=== PATIENT | male | born 2000 | race Hispanic/Latino ===

== ENCOUNTER 2023-01-13 11:34 | Emergency (ER) | payer OTHER, SELFPAY ==
[2023-01-13 11:40] VITALS: BP 143/84; PULSE 95; RESP 18; TEMP 36.9; O2SAT 98; BMI 21.5
--- NOTE | 2023-01-13 12:20 | PC.NURSE ---
Pt stated that he wants to and has the main plan of intentional overdose and a secondary plan of stabbing himself and [place]. Pt reports that he has always had some thoughts of suicide his entire life, but it got worse when he gave up on a goal he had set for himself. However, pt was unwilling to elaborate on goal. Pt also reports that he has suffered from depression and anxiety throughout his life, but never been formally diagnosed. Pt affect is guarded and flat, but calm and cooperative. Pt states that he does not want inpatient treatment at this time, but that if he were to be discharged he would follow through with his plan.
[2023-01-13 12:41] LABS: UR Morphine/Opiate cutoff 300 Negative (Negative); Ur Creatinine Normal (Normal); Ur Specific Gravity Normal (Normal); Urine Amphetamines Negative (Negative); Urine Barbiturates Negative (Negative); Urine Benzodiazepines Negative (Negative); Urine Cocaine Negative (Negative); Urine MDMA Negative (Negative); Urine Methadone Negative (Negative); Urine Methamphetamines Negative (Negative); Urine Oxycodone Negative (Negative); Urine Phencyclidine Negative (Negative); Urine Tetrahydrocannabinol Negative (Negative); Urine Tricyclic Antidepressant Negative (Negative); Urine pH Normal (Normal)
--- NOTE | 2023-01-13 12:41 | PC.NURSE ---
JEANNETTE Griffith in to speak with patient
[2023-01-13 12:42] LABS: Add Manual Diff / Slide Review NO; Basophils Absolute Auto 0 /uL (0-100); Basophils Percent Auto 0.7 % (0-2); Eosinophils Absolute Auto 0 /uL (0-450); Eosinophils Percent Auto 0.5 % (2-4); Lymphocytes Absolute Auto 800 /uL (1100-4500); Lymphocytes Percent Auto 17.8 % (25-40); Mean Corpuscular HGB Conc 34.1 % (30-36); Mean Corpuscular Hemoglobin 29.9 PG (26-34); Mean Corpuscular Volume 87.6 fL (80-100); Monocytes Absolute Auto 300 /uL (0-900); Monocytes Percent Auto 6.8 % (3-14); Neutrophils Absolute Auto 3200 /uL (1500-7000); Neutrophils Percent Auto 74.2 % (50-75); Platelet Count 324 X10^3/uL (150-400); Red Blood Cell Count 5.02 X10^6/uL (4.5-5.9); Red Cell Distribution Width 13.4 % (11.6-14.8); White Blood Cell Count 4.4 X10^3/uL (4.5-11.0)
[2023-01-13 12:46] LABS: Bacteria Urine Occasional (0-1); RBC Urine 1-5/HPF (0-5/HPF); Squamous Epithelial Cell Urine 0-1 /HPF (0-5/HPF); WBC Urine 1-5/HPF (0-5/HPF)
--- NOTE | 2023-01-13 12:50 | ED_ITS ---
HPI - Psych General Chief Complaint: Psychiatric Symptoms Stated Complaint: Suicidal Time Seen by Provider: 01/13/23 12:05 Source: patient Mode of arrival: Ambulatory History of Present Illness HPI Narrative: [place] accompanied by senior officers. I did speak to patient by himself. He states he is felt very depressed for over a week. He is had these feelings in the past, years ago but never saw any providers for it. Denies any diagnosis of depression anxiety bipolar. He is not done anything to hurt himself yet. He had planned in the past couple days to take pills and stab himself and [place]. Patient is cooperative at this time. He states he is never had admission to psychiatric or behavioral Health [place] in the past. Denies any drugs or alcohol use Related Data Allergies Allergy/AdvReac Type Severity Reaction Status Date / Time No Known Drug Allergies Allergy Verified 01/13/23 11:48 Review of Systems Review of Systems Narrative: GENERAL: negative chills, fatigue, malaise, fever, sweats. HEENT: negative sinus pain, ear pain, sore throat RESPIRATORY: negative dyspnea, cough CARDIOVASCULAR: negative chest pain, palpitations GASTROINTESTINAL: negative nausea, vomiting, abdominal pain : negative dysuria, frequency, hematuria MUSCULOSKELETAL: negative muscle or bony pain SKIN: negative rash, skin lesions NEUROLOGIC: negative weakness, numbness PSYCH: Positive anxiety positive depression positive SI negative delusions/hallucinations ROS Unobtainable: All systems reviewed & are unremarkable except as noted in HPI and below Patient History Social History Smoking Status: Never smoker Smoking Status: Never smoker Substance Use Type: does not use Exam Narrative Exam Narrative: GENERAL: in no distress, not toxic not dyspneic HEAD: Normocephalic. EYES: Pupils equal round ENT: Mucous membranes moist. NECK: Trachea midline. CARDIOVASCULAR: Regular rate and rhythm RESPIRATORY: Clear to auscultation. Breath sounds equal bilaterally. No wheezes, rales, or rhonchi. EXTREMITIES: No gross deformities. BACK: No flank tenderness. NEURO: AOx4. SKIN: Warm and dry PSYCH: Not anxious, is cooperative, has flat affect. Not tearful. Very short with answers, no rapid speech or pressured speech. Does have plan for suicide ideations. No HI. Initial Vital Signs Initial Vital Signs: Vital Signs Temperature 98.4 F 01/13/23 11:40 Pulse Rate 95 H 01/13/23 11:40 Respiratory Rate 18 01/13/23 11:40 Blood Pressure 143/84 H 01/13/23 11:40 Pulse Oximetry 98 01/13/23 11:40 Oxygen Delivery Method Room Air 01/13/23 11:40 Course Orders Ordered: ED Orders 01/13/23 11:56 Consult to [facility] [place] Stat 01/13/23 12:17 Consult to [facility] [place] Stat 01/13/23 12:19 Urine Culture Stat Urine Drug Screen, Rapid Stat Urine Microscopic Stat 01/13/23 12:30 Acetaminophen Stat Complete Blood Count AUTO DIFF Stat Comprehensive Metabolic Panel Stat Ethanol (ETOH) Stat Free T4, Direct Thyroxine Stat Salicylate Stat Thyroid Stimulating Hormone Stat 01/13/23 12:41 COVID19 -Nasal RAPID Stat 01/13/23 12:42 Consult to [facility] [place] Stat Vital Signs Vital signs: Vital Signs - 8 hr 01/13/23 11:40 Temperature 98.4 F Pulse Rate 95 H Respiratory Rate 18 Blood Pressure 143/84 H Pulse Oximetry 98 Oxygen Delivery Method Room Air MDM - Psych Lab Data 01/13/23 12:30 01/13/23 12:30 Labs: Lab Results 01/13/23 01/13/23 01/13/23 Range/Units 12:19 12:30 12:41 WBC 4.4 L (4.5-11.0) X10^3/uL RBC 5.02 (4.5-5.9) X10^6/uL Hgb 15.0 (13.5-17.5) g/dL Hct 44.0 (41-53) % MCV 87.6 (80-100) fL MCH 29.9 (26-34) PG MCHC 34.1 (30-36) % RDW 13.4 (11.6-14.8) % Plt Count 324 (150-400) X10^3/uL Neut % (Auto) 74.2 (50-75) % Lymph % (Auto) 17.8 L (25-40) % [place] % (Auto) 6.8 (3-14) % Eos % (Auto) 0.5 L (2-4) % Baso % (Auto) 0.7 (0-2) % Neut # (Auto) 3200 (9853-3134) /uL Lymph # (Auto) 800 L (1633-0569) /uL [place] # (Auto) 300 (0-900) /uL Eos # (Auto) 0 (0-450) /uL Baso # (Auto) 0 (0-100) /uL Sodium 141 (137-145) mmol/L Potassium 3.5 (3.4-5.1) mmol/L Chloride 101 (98-107) mmol/L Carbon Dioxide 28 (22-32) mmol/L BUN 7 L (9-20) mg/dL Creatinine 0.79 (0.66-1.25) mg/dL Estimated GFR > 60 (>60) mL/min BUN/Creatinine Ratio 8.9 (6-22) Glucose 100 (70-100) mg/dL Calcium 9.6 (8.4-10.2) mg/dL Total Bilirubin 0.7 (0.2-1.3) mg/dL AST 23 (17-59) IU/L ALT 23 (<50) IU/L Alkaline Phosphatase 73 (38-126) U/L Total Protein 7.8 (6.3-8.2) g/dL Albumin 4.8 (3.5-5.0) g/dL Globulin 3.0 (1.7-4.1) g/dL Albumin/Globulin Ratio 1.6 (1.0-2.8) TSH 0.714 (0.47-4.68) uIU/mL Free T4 1.30 (0.78-2.19) ng/dL Urine RBC 1-5/hpf (0-5/HPF) Urine WBC 1-5/hpf (0-5/HPF) Ur Squamous Epith Cells 0-1 /hpf (0-5/HPF) Urine Bacteria Occasional (0-1) (None) Ur Culture Indicated? TNP Salicylates < 1.0 (<20) mg/dL U Opiates 300ng/mL cut Negative (Negative) Ur Oxycodone Screen Negative (Negative) Urine Methadone Screen Negative (Negative) Acetaminophen < 10 (10-30) ug/mL Ur Barbiturates Screen Negative (Negative) U Tricyclic Antidepress Negative (Negative) Ur Phencyclidine Scrn Negative (Negative) Ur Amphetamines Screen Negative (Negative) U Methamphetamines Scrn Negative (Negative) Ur MDMA Scrn (Ecstasy) Negative (Negative) U Benzodiazepines Scrn Negative (Negative) Urine Cocaine Screen Negative (Negative) U Marijuana (THC) Screen Negative (Negative) Ethyl Alcohol < 10 ( - 10) mg/dL SARS-CoV-2 (PCR) Negative (Negative) Urine Dip Bedside Urine Glucose Negative Bedside Urine Bilirubin - Negative Bedside Urine Ketone - Negative Urine Specific [place] 1.010 Bedside Urine Occult Blood +/- Bedside Urine pH 6.5 Bedside Urine Protein - Negative Bedside Urine Urobilinogen - Negative Bedside Urine Nitrite - Negative Bedside Urine Leukocytes - Negative Esterase MDM Narrative Medical decision making narrative: [place] base, accompanied by senior officers. I did speak to patient by himself. He states he is felt very depressed for over a week. He is had these feelings in the past, years ago but never saw any providers for it. Denies any diagnosis of depression anxiety bipolar. He is not done anything to hurt himself yet. He had planned in the past couple days to take pills and stab himself and [place]. Patient is cooperative at this time. He states he is never had admission to psychiatric or behavioral Health [place] in the past. Denies any drugs or alcohol use After history and exam CBC CMP TSH alcohol drug screen Tylenol aspirin social work consult likely transfer MDM CC: SI Complicating co-morbidities: Previous SI thoughts Data collected from: Patient Medical records reviewed: No previous visits for this complaint Differential considered: Includes but not limited to depression anxiety suicide ideation Exam documented above, pertinent findings include: Depressed affect suicide ideation Lab Test results independently reviewed as above. Pertinent findings: WBC 4.4 hemoglobin 15 sodium 141 potassium 3.5 BUN 7 creatinine 0.79 drug screen negative Tylenol and aspirin negative alcohol negative COVID negative TSH 0.714 Consultations: Social work here, Gladis, has spoken with Dr. Winslow, at [facility], he will accept patient Treatments: None indicated Re-evaluations: Reviewed results with patient. Patient is accompanied by senior officers. Discussion: Appropriate for transfer as patient needs higher level of care and psychiatric services. Patient is accompanied by senior officers from the Diagnosis: Acute depression/suicide ideation Discharge Plan Departure Patient Disposition: Xfer Psychiatric Hosp Clinical Impression: Suicidal ideation Depression Qualifiers: Depression Type: unspecified Qualified Code(s): F32.A - Depression, unspecified Referrals: Provider,Tushar BARTHOLOMEW [Primary Care Provider] -
[2023-01-13 12:56] LABS: Acetaminophen < 10 ug/mL (10-30); Alanine Aminotransferase 23 IU/L (<50); Albumin 4.8 g/dL (3.5-5.0); Albumin Globulin Ratio 1.6 (1.0-2.8); Alkaline Phosphatase 73 U/L (38-126); Aspartate Aminotransferase 23 IU/L (17-59); BUN Creatinine Ratio 8.9 (6-22); Bilirubin Total 0.7 mg/dL (0.2-1.3); Blood Urea Nitrogen 7 mg/dL (9-20); Calcium 9.6 mg/dL (8.4-10.2); Carbon Dioxide 28 mmol/L (22-32); Chloride 101 mmol/L (98-107); Estimated Glomerular Filt Rate > 60 mL/min (>60); Ethanol (ETOH) < 10 mg/dL; Glucose 100 mg/dL (70-100); HEMOLYSIS < 15 (0-50); Potassium 3.5 mmol/L (3.4-5.1); Salicylate < 1.0 mg/dL (<20); Sodium 141 mmol/L (137-145); Total Protein 7.8 g/dL (6.3-8.2)
[2023-01-13 13:07] LABS: COVID19 -Nasal RAPID Negative (Negative)
--- NOTE | 2023-01-13 13:12 | CM.SWNOTE ---
Addendum entered by Gladis Ballesteros 01/13/23 13:49: Pt screened and accepted for voluntary admission to [facility]. Accepting provider is Dr. Winslow for [facility] arrival. VR 13:50 Original Note: CAD INTERN - Grounds/Maintenance Specialist Assessment CAD INTERN - Grounds/Maintenance Specialist Assessment Start: 01/13/23 12:53 Freq: Status: Active Protocol: Document 01/13/23 12:53 VR (Rec: 01/13/23 13:06 VR [id number]) CAD INTERN/Grounds/Maintenance Specialist Assessment Time Spent with Patient Start date 01/13/23 Visit Start Time 12:30 End date 01/13/23 Visit End Time 12:50 Total time Care Management spent on 20 patient visit-in minutes Mental Health Screening Include Onset, Duration, Intensity Presenting Problem Patient is a 22yo male who arrives to the ED for SI. He is accompanied by Chief Carroll Officer Patel Hu and Chief Jose M Boyd from [employer] where Pt is stationed with the [employer]. Pt reports he is in the ED for suicidal thoughts. he details having these thoughts the past three days. 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 he declines to speak about triggers with this typewriter repairer. he details that last night he [place], take pills, cut myself, and jump. he notes recently sleep has not been good. he denies current hope for the future. Precipitating Event(s) Pt declines to discuss with this typewriter repairer. Per chart he may have an upcoming deployment. Patient Strengths Pt spoke reportedly has been more open with [employer] officers this week. Current Behavioral Health Provider(s) None Include Facility, Provider, Ph. # Psych. Hx Mental Health and Chemical Pt reports hx of SI thoughts 2 Dependency -3 years ago. He denies any prior formal diagnosis. He has no hx of IP admissions. No hx of medications. He denies all hx of suicide attempts or self harm. Family Hx of Behavioral Abuse None Psychiatric Hospitalizations (date(s)/ None location) Psychosocial information & Support Pt denies having supports. Systems Family is in [place]. he does note having one friend that was a deterrent to acting on SI last night. when asked if they would be identified as a support he states i guess. School/Work Pt was b/r in [place]. He graduated high school He has been in the [place] for two years. He is in base housing in [place] and has a roommate. He has never been and has no children. He has [employer] insurance coverage. Legal Concerns Legal Matters - Outstanding Issues Pt denies. Mental Status Orientation (Person/Place/Time) Pt confirmed his name and date of . Pt is A&Ox4. Stated Mood bad. Affect (Congruent with Mood?) congruent; flat Thought Content - Specify/Describe concrete Obsessions, Delusions, Hallucinations Thought Processes (Igvizzq-Poghyakq-Mdvk linear Crmnavrs-Snwagoqj-Zobvacjvsr- Cqfyyhdcuvgldn-Mridqwe-Rwgmblmvbovu- Thought Blocking) Speech (Amrkgz-Ddqa-Gcsvfnc-Rapid-Soft- slow, quiet Loud-Pressured) Motor (Qqgovv-Afutcedxr-Mdsu-Other) subdued. Insight (Ysgi-Ytzr-Qebz/Limited) fair Judgement (Agyu-Lplk-Achm/Limited) poor Impulse Control (Adequate-Impaired) adequate Memory (Lxjrbjxss-Hwgepu-Bdsand, Good Impaired-Intact) Concentration (Intact-Impaired) Intact Attention (Intact-Impaired) Intact Behavior (Appropriate-Inappropriate) appropriate, withdrawn Risk Assessment Suicidal Ideation (Plan) Yes. various plans. identifies intent. Homicidal Ideation (Plan) No Intervention Intervention SW met with Pt at bedside privately. he reports increasing SI for the past two days. he details various plans and denies any hopes for the future. he denies any deterrents at this time. he is not able to engage in safety planning. he is accompanied by Chief in the [employer] and Chief Carroll Officer. Pt is assessed to be at imminent risk of harm to himself and meets criteria for IP admission. he is agreeable to voluntary IP admission. Plan RA Plan Discussed with Chief Carroll Officer Mayte and MD Hearn . Plan to refer to [facility] for voluntary IP admission. Gladis Ballesteros, JEANNETTE, CONSULTANT IN ERGONOMICS AND SAFETY
[2023-01-13 13:27] LABS: Thyroid Stimulating Hormone 0.714 uIU/mL (0.47-4.68)
[2023-01-13 14:59] VITALS: BP 122/83; PULSE 77; RESP 20; O2SAT 99
== END 2023-01-13 15:04 ==
PROVIDERS: Emergency Provider Emergency Medicine
DX: R45.851 Suicidal ideations (principal); F32.A Depression, unspecified; R79.89 Other specified abnormal findings of blood chemistry; Z20.822 Contact with and (suspected) exposure to COVID-19
CPT/HCPCS: 36415; 80053; 80305; 80320; 80329; 81003; 81015; 84439; 84443; 85025; 87086; 87635; 99284; C9803; G0480